=== PATIENT | female | born 1970 | race Caucasian/White ===

== ENCOUNTER 2022-04-11 07:23 | Emergency (ER) | payer MEDICAID ==
[2022-04-11 07:33] VITALS: BP 134/80; PULSE 92
[2022-04-11 08:21] LABS: CORONAVIRUS COVID-19 NAA NEGATIVE (NEGATIVE)
== END 2022-04-11 09:09 | disposition home or self-care (01) ==
LOC: JD.ED 07:23
DX: J10.1 Influenza due to other identified influenza virus with other respiratory manifestations (principal); E78.00 Pure hypercholesterolemia, unspecified; I10 Essential (primary) hypertension; E11.9 Type 2 diabetes mellitus without complications; F17.210 Nicotine dependence, cigarettes, uncomplicated; Z79.899 Other long term (current) drug therapy; Z20.822 Contact with and (suspected) exposure to COVID-19
CPT/HCPCS: 0241U; 87651; 99283

== ENCOUNTER 2022-09-28 21:18 | Emergency (ER) | payer MEDICAID ==
[2022-09-28 21:47] VITALS: BP 130/84; PULSE 90
[2022-09-28 22:10] LABS: HEMATOCRIT 47.9 % (34.1-44.9); HEMOGLOBIN 16.4 gm/dl (11.2-15.7); MEAN CORPUSCULAR HEMOGLOBIN 30.5 pg (25.6-32.2); MEAN CORPUSCULAR HGB CONC 34.2 g/dl (32.2-35.5); PLATELET COUNT,PLT 193 K/mm3 (182-369); RED BLOOD CELL COUNT 5.38 M/mm3 (3.98-5.22); WHITE BLOOD CELL COUNT,WBC 7.44 K/mm3 (3.98-10.04)
[2022-09-28] MEDS ORDERED: Orphenadrine 100 MG Tab.ER PO STA (22:37)
[2022-09-28 22:38] LABS: A/G RATIO 1.1 (1-2); ANION GAP 14.3 (5-15); BILIRUBIN TOTAL 0.8 mg/dL (0.2-1.0); BUN/CREATININE RATIO 23.3 (14-18); CALCIUM 9.1 mg/dL (8.5-10.1); CREATININE 0.9 mg/dL (0.55-1.02); EST CRCL DRUG DOSING (CG) 78.17 mL/min; POTASSIUM,K 4.3 mEq/L (3.5-5.1); PROTEIN TOTAL,TP 7.8 g/dl (6.4-8.2)
[2022-09-28 22:56] LABS: BAND PERCENT MAN 0 % (0-10); BASOPHILS PERCENT MAN 0 (0.1-1.2); EOSINOPHILS PERCENT MAN 2 % (0.7-5.8); LYMPHOCYTES % ATYPICAL MANUAL 0 %; LYMPHOCYTES PERCENT MAN 43 % (20-40); MONOCYTES PERCENT MAN 4 % (2-10)
[2022-09-28 22:57] LABS: PLATELET COUNT ESTIMATE ADEQUATE
== END 2022-09-28 23:15 | disposition home or self-care (01) ==
LOC: JD.ED 21:18
DX: R25.2 Cramp and spasm (principal); I10 Essential (primary) hypertension; E11.42 Type 2 diabetes mellitus with diabetic polyneuropathy; E66.9 Obesity, unspecified; F17.210 Nicotine dependence, cigarettes, uncomplicated; Z68.31 Body mass index [BMI] 31.0-31.9, adult; Z79.84 Long term (current) use of oral hypoglycemic drugs; Z79.899 Other long term (current) drug therapy
CPT/HCPCS: 36415; 80053; 83735; 85007; 85027; 99284; A9270

== ENCOUNTER 2022-11-02 16:30 | Emergency (ER) | payer MEDICAID ==
[2022-11-02 16:42] VITALS: BP 102/76; PULSE 94
[2022-11-02] MEDS ORDERED: Sodium Chloride 0.9% 10 ML Syringe FLUSH PRN (16:58)
[2022-11-02] MEDS ORDERED: Sodium Chloride 0.9% 1,000 ML IV SCH (17:15)
[2022-11-02 17:36] LABS: BASOPHILS ABSOLUTE AUTO 0.02 K/mm3 (0.01-0.08); BASOPHILS PERCENT AUTO 0.2 % (0.1-1.2); EOSINOPHILS ABSOLUTE AUTO 0.08 K/mm3 (0.04-0.36); EOSINOPHILS PERCENT AUTO 0.8 (0.7-5.8); HEMATOCRIT 46.1 % (34.1-44.9); HEMOGLOBIN 15.6 gm/dl (11.2-15.7); IMMATURE GRAN ABSOLUTE AUTO 0.03 K/mm3 (0.00-0.10); IMMATURE GRAN PERCENT AUTO 0.3 % (<=1.0); LYMPHOCYTES ABSOLUTE AUTO 3.96 K/mm3 (1.18-3.74); LYMPHOCYTES PERCENT AUTO 40.7 % (19.3-51.7); MEAN CORPUSCULAR HEMOGLOBIN 30.7 pg (25.6-32.2); MEAN CORPUSCULAR HGB CONC 33.8 g/dl (32.2-35.5); MEAN CORPUSCULAR VOLUME 90.7 fl (79.4-94.8); MEAN PLATELET VOLUME 10.1 fl (9.4-12.3); MONOCYTES ABSOLUTE AUTO 0.98 K/mm3 (0.24-0.36); MONOCYTES PERCENT AUTO 10.1 % (4.7-12.5); NEUTROPHILS ABSOLUTE AUTO 4.66 K/mm3 (1.56-6.13); NEUTROPHILS PERCENT AUTO 47.9 % (34.0-71.1); PLATELET COUNT,PLT 199 K/mm3 (182-369); RED BLOOD CELL COUNT 5.08 M/mm3 (3.98-5.22); WHITE BLOOD CELL COUNT,WBC 9.73 K/mm3 (3.98-10.04)
[2022-11-02 18:06] LABS: ANION GAP 16.2 (5-15); BILIRUBIN TOTAL 0.7 mg/dL (0.2-1.0); BUN/CREATININE RATIO 22.2 (14-18); CALCIUM 8.9 mg/dL (8.5-10.1); CREATININE 0.9 mg/dL (0.55-1.02); EST CRCL DRUG DOSING (CG) 56.52 mL/min; MAGNESIUM 2.1 mg/dL (1.8-2.4); POTASSIUM,K 4.2 mEq/L (3.5-5.1); PROTEIN TOTAL,TP 7.9 g/dl (6.4-8.2); TSH 2.206 uIU/mL (0.358-3.74)
[2022-11-02 18:07] LABS: APPEARANCE,URINE CLEAR (Clear); BILIRUBIN,URINE NEGATIVE (Negative); COLOR,URINE YELLOW (Yellow); GLUCOSE,URINE 3+ (Negative); KETONES,URINE 1+ (Negative); LEUKOCYTE ESTERASE,URINE TRACE (Negative); NITRITE,URINE NEGATIVE (Negative); OCCULT BLOOD,URINE 3+ (Negative); PH,URINE 5.5 (5.0-8.0); PROTEIN,URINE NEGATIVE (Negative); UROBILINOGEN,URINE 0.2 (0.2-1.0)
[2022-11-02 18:13] LABS: BARBITURATE SCREEN,URINE NEGATIVE (CUTOFF=200); BENZODIAZEPINES SCREEN,URINE PRESUMPTIVE POSITIVE (CUTOFF=150); BUPRENORPHINE SCREEN,URINE NEGATIVE (CUTOFF=10); METHADONE SCREEN, URINE NEGATIVE (CUTOFF=200); METHAMPHETAMINES SCREEN, URINE NEGATIVE (CUTOFF=500); OXYCODONE SCREEN,URINE NEGATIVE (CUT0FF=100); PROPOXYPHENE SCREEN,URINE NEGATIVE (CUTOFF=300); THC SCREEN,URINE 20 NG/ML PRESUMPTIVE POSITIVE (CUTOFF=50)
[2022-11-02 18:19] LABS: AMPHETAMINES SCREEN, URINE NEGATIVE (CUTOFF=500)
[2022-11-02 18:21] LABS: EPITHELIAL CELLS,URINE 0-5 /hpf (0-5); RBC,URINE 0-5 /hpf (0-5)
[2022-11-02 18:22] LABS: BACTERIA,URINE FEW /hpf (FEW); MUCUS,URINE FEW /hpf (FEW)
== END 2022-11-02 19:08 | disposition home or self-care (01) ==
LOC: JD.ED 16:30
DX: R25.2 Cramp and spasm (principal); I10 Essential (primary) hypertension; E11.42 Type 2 diabetes mellitus with diabetic polyneuropathy; F17.210 Nicotine dependence, cigarettes, uncomplicated; E66.9 Obesity, unspecified; Z68.39 Body mass index [BMI] 39.0-39.9, adult; Z79.899 Other long term (current) drug therapy; Z79.84 Long term (current) use of oral hypoglycemic drugs
CPT/HCPCS: 36415; 80053; 80306; 80307; 81001; 82550; 83735; 84443; 84484; 85025; 85379; 87086; 93005; 99283; J3490; 93010; 99284

== ENCOUNTER 2023-02-15 10:46 | Emergency (ER) | payer MEDICAID, OTHER ==
[2023-02-15 11:58] LABS: BASOPHILS PERCENT AUTO 0.3 % (0.0-1.0); EOSINOPHILS ABSOLUTE AUTO 0.1 K/mm3 (0.0-0.4); EOSINOPHILS PERCENT AUTO 1.1 % (0.0-6.0); HEMATOCRIT 45.1 % (37.0-47.0); HEMOGLOBIN 15.6 gm/dl (12.0-16.0); IMMATURE GRAN ABSOLUTE AUTO 0.04 K/mm3 (0.00-0.05); IMMATURE GRAN PERCENT AUTO 0.6 % (0.0-0.4); LYMPHOCYTES PERCENT AUTO 41.3 % (24.0-44.0); MEAN CORPUSCULAR HEMOGLOBIN 30.5 pg (28.0-32.0); MEAN CORPUSCULAR HGB CONC 34.6 g/dl (32.0-36.0); MEAN CORPUSCULAR VOLUME 88.3 fl (83.0-99.0); MEAN PLATELET VOLUME 9.9 fl (9.4-12.3); MONOCYTES ABSOLUTE AUTO 0.5 K/mm3 (0.0-0.8); MONOCYTES PERCENT AUTO 7.1 % (0.0-8.0); NEUTROPHILS ABSOLUTE AUTO 3.5 K/mm3 (1.8-7.7); NEUTROPHILS PERCENT AUTO 49.6 % (41.0-71.0); PLATELET COUNT,PLT 222 K/mm3 (150-400); RED BLOOD CELL COUNT 5.11 M/mm3 (4.10-5.30); WHITE BLOOD CELL COUNT,WBC 7.14 K/mm3 (3.9-11.3)
[2023-02-15 12:34] LABS: A/G RATIO 0.8 (1-2); ALBUMIN 3.5 g/dl (3.4-5.0); ANION GAP 12.4 (5-15); BILIRUBIN TOTAL 0.4 mg/dL (0.2-1.0); BUN/CREATININE RATIO 14.4 (14-18); CALCIUM 9.4 mg/dL (8.5-10.1); CREATININE 0.9 mg/dL (0.55-1.02); EST CRCL DRUG DOSING (CG) 77.27 mL/min; POTASSIUM,K 4.4 mEq/L (3.5-5.1); PROTEIN TOTAL,TP 7.8 g/dl (6.4-8.2)
[2023-02-15 12:58] LABS: APPEARANCE,URINE CLEAR (Clear); BILIRUBIN,URINE NEGATIVE (Negative); COLOR,URINE YELLOW (Yellow); GLUCOSE,URINE NEGATIVE (Negative); KETONES,URINE NEGATIVE (Negative); LEUKOCYTE ESTERASE,URINE 1+ (Negative); NITRITE,URINE NEGATIVE (Negative); OCCULT BLOOD,URINE NEGATIVE (Negative); PH,URINE 5.5 (5.0-8.0); PROTEIN,URINE NEGATIVE (Negative); UROBILINOGEN,URINE 0.2 (0.2-1.0)
[2023-02-15 13:10] LABS: BACTERIA,URINE FEW /hpf (FEW); EPITHELIAL CELLS,URINE 0-5 /hpf (0-5); RBC,URINE 0-5 /hpf (0-5)
[2023-02-15 13:11] LABS: MUCUS,URINE FEW /hpf (FEW)
[2023-02-15 17:10] VITALS: BP 125/87; PULSE 78
== END 2023-02-15 13:51 | disposition home or self-care (01) ==
LOC: JD.ED 10:46 → JD.MS 11:14 → UNDOADMIN 11:14 → JD.ED 13:51
DX: K59.00 Constipation, unspecified (principal); I10 Essential (primary) hypertension; E78.00 Pure hypercholesterolemia, unspecified; E66.9 Obesity, unspecified; F17.210 Nicotine dependence, cigarettes, uncomplicated; Z68.30 Body mass index [BMI] 30.0-30.9, adult; Z79.84 Long term (current) use of oral hypoglycemic drugs; E11.9 Type 2 diabetes mellitus without complications; Z79.899 Other long term (current) drug therapy
CPT/HCPCS: 36415; 74019; 74019-26; 80053; 81001; 85025; 86140; 87086; 99284

== ENCOUNTER 2025-01-21 03:42 | Emergency (ER) | payer MEDICAID ==
[2025-01-21 04:23] LABS: BASOPHILS ABSOLUTE AUTO 0.0 K/mm3 (0.0-0.2); BASOPHILS PERCENT AUTO 0.3 % (0.0-1.0); EOSINOPHILS ABSOLUTE AUTO 0.0 K/mm3 (0.0-0.4); EOSINOPHILS PERCENT AUTO 0.2 % (0.0-6.0); IMMATURE GRAN ABSOLUTE AUTO 0.03 K/mm3 (0.00-0.05); IMMATURE GRAN PERCENT AUTO 0.3 % (0.0-0.4); LYMPHOCYTES ABSOLUTE AUTO 2.7 K/mm3 (1.0-4.8); LYMPHOCYTES PERCENT AUTO 24.4 % (24.0-44.0); MEAN PLATELET VOLUME 10.2 fl (9.4-12.3); MONOCYTES ABSOLUTE AUTO 0.9 K/mm3 (0.0-0.8); MONOCYTES PERCENT AUTO 8.2 % (0.0-8.0); NEUTROPHILS ABSOLUTE AUTO 7.3 K/mm3 (1.8-7.7); NEUTROPHILS PERCENT AUTO 66.6 % (41.0-71.0); NRBC ABSOLUTE 0.00 (0.00-0.02); NRBC PERCENT 0.0 % (0.0-0.2); PLATELET COUNT,PLT 192 K/mm3 (150-400); RED BLOOD CELL COUNT 5.62 M/mm3 (4.10-5.30); WHITE BLOOD CELL COUNT,WBC 10.91 K/mm3 (3.9-11.3)
[2025-01-21 04:42] LABS: A/G RATIO 1.3 (1-2); ALANINE AMINOTRANSFERASE,ALT 32.0 U/L (14-59); ASPARTATE AMNIOTRANSFERASE,AST 14.0 U/L (15-37); BILIRUBIN TOTAL 0.8 mg/dL (0.2-1.0); BLOOD UREA NITROGEN,BUN 24.0 mg/dL (7-18); CARBON DIOXIDE,CO2 24.0 mEq/L (21-32); CHLORIDE,CL 100.0 mEq/L (98-107); CREATINE KINASE,CK 117.0 U/L (26-192); CREATININE 1.1 mg/dL (0.55-1.02); EST CRCL DRUG DOSING (CG) 61.75 mL/min; ESTIMATED GFR 59.0 mL/min (>60); GLUCOSE RANDOM 234.0 mg/dL (70-99); POTASSIUM,K 4.8 mEq/L (3.5-5.1); PROTEIN TOTAL,TP 8.1 g/dl (6.4-8.2); SODIUM,NA 138.0 mEq/L (136-145)
[2025-01-21 05:23] LABS: APPEARANCE,URINE CLEAR (Clear); GLUCOSE,URINE 2+ (Negative); OCCULT BLOOD,URINE NEGATIVE (Negative)
[2025-01-21 05:32] VITALS: BP 149/90; PULSE 77
[2025-01-21 05:37] LABS: BUPRENORPHINE SCREEN,URINE NEGATIVE (CUTOFF=10); METHADONE SCREEN, URINE NEGATIVE (CUTOFF=200); METHAMPHETAMINES SCREEN, URINE NEGATIVE (CUTOFF=500); OXYCODONE SCREEN,URINE NEGATIVE (CUT0FF=100); THC SCREEN,URINE 20 NG/ML PRESUMPTIVE POSITIVE (CUTOFF=50)
[2025-01-21 05:47] LABS: AMPHETAMINES SCREEN, URINE NEGATIVE (CUTOFF=500)
[2025-01-21 06:01] LABS: SQUAMOUS EPITHELIAL CELLS,UR 0-5 /hpf (0-5)
== END 2025-01-21 05:35 | disposition home or self-care (01) ==
LOC: JD.ED 03:42
DX: G47.00 Insomnia, unspecified (principal); E86.9 Volume depletion, unspecified; T42.6X5A Adverse effect of other antiepileptic and sedative-hypnotic drugs, initial encounter; I10 Essential (primary) hypertension; G61.82 Multifocal motor neuropathy; E11.43 Type 2 diabetes mellitus with diabetic autonomic (poly)neuropathy; E78.00 Pure hypercholesterolemia, unspecified; F45.9 Somatoform disorder, unspecified; Z79.84 Long term (current) use of oral hypoglycemic drugs; Z79.899 Other long term (current) drug therapy; Z76.0 Encounter for issue of repeat prescription
CPT/HCPCS: 36415; 80053; 80306; 81001; 82550; 83735; 85025; 96360; 99285; A9270; J7030; 99284